=== PATIENT | male | born 1945 | race Caucasian/White ===

== ENCOUNTER 2018-09-17 03:11 | Outpatient (CLI) | payer MEDICARE, BC | END 2018-09-17 23:59 | disposition home or self-care (01) | LOC: DIABETIC 03:11 | PROVIDERS: ATTEND Family Medicine | DX: E11.9 Type 2 diabetes mellitus without complications (principal); Z79.84 Long term (current) use of oral hypoglycemic drugs; Z79.899 Other long term (current) drug therapy | CPT/HCPCS: G0108 ==

== ENCOUNTER 2018-11-12 00:52 | Outpatient (CLI) | payer MEDICARE, BC | END 2018-11-12 23:59 | disposition home or self-care (01) | LOC: DIABETIC 00:52 | PROVIDERS: ATTEND Family Medicine | DX: E11.9 Type 2 diabetes mellitus without complications (principal) | CPT/HCPCS: G0108 ==

== ENCOUNTER 2022-06-18 12:33 | Outpatient (CLI) | payer BC | END 2022-06-18 23:59 | disposition home or self-care (01) | LOC: CARD DIAG 12:33 | PROVIDERS: ATTEND Internal Medicine Cardiovascular Disease | DX: I08.8 Other rheumatic multiple valve diseases (principal); I48.92 Unspecified atrial flutter | CPT/HCPCS: 93306 ==